=== PATIENT | female | born 1990 | race Caucasian/White ===

== ENCOUNTER 2017-03-12 13:22 | Emergency (ER) | payer SELFPAY ==
[2017-03-12] MEDS ORDERED: LORazepam 1 MG TAB ONE (13:58)
[2017-03-12] MEDS ORDERED: LORazepam 1 MG TAB PO ONE (14:00)
[2017-03-12] MEDS ORDERED: CEPHALEXIN 500 MG CAP PO ONE (14:01)
--- NOTE | 2017-03-12 14:03 | EDPHY ---
H & P Time Seen by Provider: 03/12/17 13:49 HPI/ROS: CHIEF COMPLAINT: Left 2nd digit laceration HISTORY OF PRESENT ILLNESS: 27-year-old female history of hepatitis-C, up-to- date tetanus, right-hand dominant was using a knife when it slipped and she sustained laceration to her left 2nd digit proximal phalanx radial aspect. She is complaining of paresthesia distally. She is complaining of decreased range of motion. PHYSICAL EXAM (Prior to examination, patient consented to physical exam, hands were washed and my usual and customary physical exam procedures followed) 1) GENERAL: Well-developed, well-nourished, alert and oriented. Appears anxious . 2) HEAD: Normocephalic 3) HEENT: sclera anicteric 4) LUNGS: Breathing comfortably. 5) SKIN: on the patient's left 2nd digit proximal phalanx radial aspect she has a 3 cm laceration 6) MUSCULOSKELETAL: she is unable or unwilling to extend at the MCP of the 2nd digit. 7) NEUROLOGIC: Decreased sensation distally on the affected side Smoking Status: Current every day smoker Constitutional: Initial Vital Signs Temperature (C) 36.4 C 03/12/17 13:27 Heart Rate 114 H 03/12/17 13:27 Respiratory Rate 20 03/12/17 13:27 Blood Pressure 111/74 03/12/17 13:27 O2 Sat (%) 95 03/12/17 13:27 O2 Delivery Mode Room Air Allergies/Adverse Reactions: acetaminophen [From Tylenol-Codeine #3] Allergy (Verified 09/12/16 13:30) codeine phosphate [From Tylenol-Codeine #3] Allergy (Verified 09/12/16 13:30) hydromorphone HCl [From Dilaudid] Allergy (Verified 09/12/16 13:30) metoclopramide HCl [From Reglan] Allergy (Verified 09/12/16 13:30) trazodone Allergy (Verified 09/12/16 13:30) tuberculin,PPD,multi-puncture Allergy (Verified 09/12/16 13:30) Home Medications: Medication Instructions Recorded Amoxicillin Trihydrate 500 mg PO Q8 7 Days 09/12/16 [Amoxicillin 500mg cap] Levothyroxine 09/12/16 oxyCODONE/APAP 5/325 [Percocet 1 tab PO Q6 #10 tab 09/12/16 5/325] Cephalexin [Keflex] 500 mg PO TID 5 Days 03/12/17 MDM/Departure - [facility] Imaging Results: Imaging Impressions Hand X-Ray 03/12/17 14:01 Impression: Negative for acute osseous abnormality. Images reviewed by myself Procedures: Procedure: Laceration repair. I explained the indications, risks and benefits for both laceration repair and anesthetic administration. Verbal consent was obtained from the patient . The laceration on the left index finger was anesthetized using 0.5% bupivicaine without epinephrine . After anesthetic administered the patient was observed for a period of time and had no apparent adverse effects. The wound was cleaned , prepped, draped in normal sterile fashion and explored to its base. No foreign body seen, no foreign bodies palpated. There is a partial extensor tendon laceration The wound was closed with 7 simple interrupted 5 O Prolene suture. The wound repair was complex. The procedure was performed by myself. Patient has been informed that scarring will occur, although efforts have been made to minimize this. Procedure: Splint Analuminum finger splint was applied by ER holter scanning technician. After application of the splint I returned and re-examined the patient. The splint was adequately immobilizing the joint and distal to the splint the patient's circulation and sensation were intact. Patient shows no signs of compartment syndrome. Was given orthopedic precautions. Medications Given: Discontinued Medications Cephalexin HCl (Keflex) 500 mg PO EDNOW ONE PRN Reason: Protocol Stop: 03/12/17 14:02 Last Admin: 03/12/17 14:23 Dose: 500 mg Ibuprofen (Motrin) 600 mg PO ONCE ONE Stop: 03/12/17 16:06 Last Admin: 03/12/17 16:06 Dose: 600 mg Lorazepam (Ativan) 1 mg PO EDNOW ONE Stop: 03/12/17 14:01 Last Admin: 03/12/17 14:00 Dose: 1 mg ED Course/Re-evaluation: The patient was re-evaluated with serial examinations. The wound was copiously irrigated examined by myself a gloved finger. Doubt traumatic arthrotomy of the left 2nd MCP. We discussed the possibility of extensor tendon and nerve laceration. At this time Ihave recommended skin reapproximation, splinting, follow up with hand surgeon. I have stressed the importance of hand surgery follow-up on numerous instances. She verbalized understanding of this will do so. - Depart Disposition: Home, Routine, Self-Care Clinical Impression: Laceration of left index finger Condition: Good Instructions: Laceration (ED) Additional Instructions: Return to the ER if you develop redness, swelling, discharge, warmth to the wound, red streaks going up your arm , or any other symptoms that concern you. Prescriptions: Cephalexin [Keflex] 500 mg PO TID 5 Days Referrals: Leonard Fisher MD [Medical Doctor] - 1-2 days without fail (Dr. Leonard Fisher is a hand surgeon. It is very important to follow up with hand surgeon.)
[2017-03-12] MEDS ORDERED: IBUPROFEN 600 MG TAB PO ONE (16:05)
[2017-03-12 16:20] VITALS: BP 111/68; PULSE 109; RESP 16; TEMP 98.1; O2SAT 96
== END 2017-03-12 16:24 | disposition home or self-care (01) ==
PROC: 0HQGXZZ Repair Left Hand Skin, External Approach (ICD-10-PCS; principal; 2017-03-12)
DX: S61.211A Laceration without foreign body of left index finger without damage to nail, initial encounter (principal); F17.200 Nicotine dependence, unspecified, uncomplicated; W26.0XXA Contact with knife, initial encounter
CPT/HCPCS: L3925

== ENCOUNTER 2017-04-10 14:28 | Emergency (ER) | payer SELFPAY ==
[2017-04-10] MEDS ORDERED: NS 1,000 ML IV ONE (14:59)
--- NOTE | 2017-04-10 15:19 | CPEKG ---
Heart Rate: 94 RR Interval: 638 P-R Interval: 148 QRSD Interval: 78 QT Interval: 328 QTC Interval: 411 P [place]: 67 QRS [place]: 54 T Wave [place]: 57 EKG Severity - NORMAL ECG - EKG Impression: SINUS RHYTHM Electronically Signed By: Maury Cui 10-Apr-2017 21:53:49
[2017-04-10 16:02] LABS: % IMMATURE GRANULYOCYTES 0.4 % (0.0-1.1); ABSOLUTE IMMATURE GRANULOCYTES 0.05 10^3/uL (0.00-0.10); ADD DIFF? NO; ADD MORPH? NO; ADD SCAN? YES; ATYPICAL LYMPHOCYTE FLAG 20 (0-99); FRAGMENT RBC FLAG 0 (0-99); HEMATOCRIT 43.4 % (38.0-47.0); HEMOGLOBIN 15.1 g/dL (12.6-16.3); LEFT SHIFT FLG 0 (0-99); LIPEMIA HEMOLYSIS FLAG 90 (0-99); MEAN CELL HEMOGLOBIN 30.6 pg (27.9-34.1); MEAN CELL HEMOGLOBIN CONCENTR. 34.8 g/dL (32.4-36.7); MEAN CELL VOLUME 87.9 fL (81.5-99.8); MEAN PLATELET VOLUME 9.2 fL (8.7-11.7); PLATELET COUNT 246 10^3/uL (150-400); RED BLOOD CELL COUNT 4.94 10^6/uL (4.18-5.33); RED CELL DISTRIBUTION WIDTH 12.4 % (11.5-15.2)
[2017-04-10 16:03] LABS: PLATELET CLUMPS FLAG 300 (0-99)
[2017-04-10] MEDS ORDERED: LORazepam 2 MG/ML INJ IVP ONE (16:09)
[2017-04-10] MEDS ORDERED: KETOROLAC 30 MG/1 ML SDV IVP ONE (16:09)
[2017-04-10 16:11] LABS: ANION GAP 16 mEq/L (8-16); CALCIUM 10.2 mg/dL (8.5-10.4); CARBON DIOXIDE 19 mEq/l (22-31); CHLORIDE 109 mEq/L (97-110); CREATININE 0.9 mg/dL (0.6-1.0); GLOMERULAR FILTRATION RATE > 60; GLUCOSE 96 mg/dL (70-100); POTASSIUM 4.5 mEq/L (3.5-5.2); SODIUM 144 mEq/L (134-144)
[2017-04-10 16:37] LABS: SCAN NEGATIVE
--- NOTE | 2017-04-10 17:09 | EDPHY ---
H & P Time Seen by Provider: 04/10/17 14:54 HPI/ROS: CHIEF COMPLAINT: Dizzy, nauseous, syncopal episode HISTORY OF PRESENT ILLNESS: 27-year-old female presents to the emergency department feeling dizzy and nauseous over last 2 days. She apparently had a syncopal episode earlier today. She has been complaining of feeling feverish and had a temperature of 102degrees. No diarrhea. No known ill contacts. The patient has left-sided dental pain as well. No recent dental fractures or acute dental trauma. She does not have a dentist. She denies dysphagia. Denies headache. Denies fevers or chills. She was having chest pain and difficulty breathing earlier today. She admitted to using methamphetamines 2 days ago, prior to that she had been sober for the last month and a half from drugs. REVIEW OF SYSTEMS: Constitutional: Fever as above Eyes: No double or blurry vision. ENT: No sore throat. Respiratory: Shortness of breath, no cough Cardiac: Chest pain Gastrointestinal: Nausea, vomiting. No abdominal pain or diarrhea Genitourinary: No dysuria. Musculoskeletal: No neck or back pain. Skin: No rashes. Neurological: headache. Past Medical/Surgical History: Substance abuse, cholecystectomy, kidney stones Social History: Homeless Smoking Status: Current every day smoker Physical Exam: General Appearance: Alert, no distress. Anxious. Eyes: Pupils equal and round. Extraocular motions are all intact. The patient has purple conjunctiva. ENT: Mouth: Mucous membranes moist. Poor dentition noted. There is no buccal or gingival mucosal swelling. No evidence of abscess. She has fractured teeth noted to the right upper 2nd and 3rd molars. She also has fractured tooth to the left lower 3rd molar and left upper 3rd molar. Respiratory: No wheezing, rhonchi, or rales, lungs are clear to auscultation. Cardiovascular: Regular rate and rhythm. Gastrointestinal: Abdomen is soft and nontender, no masses, no rebound or guarding, bowel sounds normal. Neurological: Alert and oriented x 3, cranial nerves II through XII grossly intact Skin: Warm and dry, no rashes. Musculoskeletal: Nontender to palpate along the cervical, thoracic or lumbar spine. Neck is supple. Extremities: Full range of motion and no peripheral edema. Psychiatric: Patient is oriented X 3, there is no agitation. Constitutional: Initial Vital Signs Temperature (C) 36.5 C 04/10/17 14:29 Heart Rate 117 H 04/10/17 14:29 Respiratory Rate 22 H 04/10/17 14:29 Blood Pressure 132/101 H 04/10/17 14:29 O2 Sat (%) 99 04/10/17 14:29 O2 Delivery Mode Room Air Allergies/Adverse Reactions: acetaminophen [From Tylenol-Codeine #3] Allergy (Verified 09/12/16 13:30) codeine phosphate [From Tylenol-Codeine #3] Allergy (Verified 09/12/16 13:30) hydromorphone HCl [From Dilaudid] Allergy (Verified 09/12/16 13:30) metoclopramide HCl [From Reglan] Allergy (Verified 09/12/16 13:30) trazodone Allergy (Verified 09/12/16 13:30) tuberculin,PPD,multi-puncture Allergy (Verified 09/12/16 13:30) Home Medications: Medication Instructions Recorded Levothyroxine 09/12/16 Penicillin V Potassium 500 mg PO TID #30 tablet 04/10/17 Medical Decision Making ED Course/Re-evaluation: 27-year-old female presents to the emergency department feeling nauseous, dizzy and having a syncopal episode today. Her EKG was within normal limits. Laboratory studies [place] [id number]. Chemistries are unremarkable. HCG is negative. Patient will be started on penicillin for her dental pain. She was given dental referral. The patient was also given IV normal saline and IV Toradol. She was feeling much better. Patient was encouraged to return to the emergency department if she developed facial swelling, fever, dysphagia, or if she felt worse in any way. - Data Points Laboratory Results: Laboratory Results 04/10/17 15:45 04/10/17 15:45 Medications Given: Discontinued Medications Acetaminophen (Tylenol) 1,000 mg PO EDNOW ONE Stop: 04/10/17 21:44 Last Admin: 04/10/17 21:43 Dose: 1,000 mg Sodium Chloride (Ns) 1,000 mls @ 0 mls/hr IV ONCE ONE PRN Reason: Wide Open Stop: 04/10/17 15:00 Last Admin: 04/10/17 16:05 Dose: 1,000 mls Ketorolac Tromethamine (Toradol) 30 mg IVP EDNOW ONE Stop: 04/10/17 16:10 Last Admin: 04/10/17 16:25 Dose: 30 mg Lorazepam (Ativan Injection) 0.5 mg IVP EDNOW ONE Stop: 04/10/17 16:10 Last Admin: 04/10/17 16:39 Dose: 0.5 mg Penicillin V Potassium (Pen Vk) 500 mg PO EDNOW ONE PRN Reason: Protocol Stop: 04/10/17 21:27 Last Admin: 04/10/17 21:30 Dose: 500 mg Penicillin V Potassium (Pen Vk 250 Mg Prepack#6) 1 btl TAKEHOME EDNOW ONE PRN Reason: Protocol Stop: 04/10/17 21:31 Last Admin: 04/10/17 21:41 Dose: 1 btl Departure - Departure Disposition: Home, Routine, Self-Care Clinical Impression: Pain due to dental caries, Substance abuse Fractured tooth Qualifiers: Encounter type: initial encounter Fracture type: closed Qualified Code(s): S02.5XXA - Fracture of tooth (traumatic), initial encounter for closed fracture Syncope Qualifiers: Syncope type: unspecified Qualified Code(s): R55 - Syncope and collapse Vomiting Qualifiers: Vomiting type: unspecified Vomiting Intractability: non-intractable Nausea presence: with nausea Qualified Code(s): R11.2 - Nausea with vomiting, unspecified Condition: Good Instructions: Penicillin V (By mouth), Dental Caries (ED), Syncope (ED), Acute Nausea and Vomiting (ED), Toothache (ED) Additional Instructions: Avoid using any recreational drugs. Return to the emergency department if he developed recurring chest pain, difficulty breathing, recurring vomiting, fever , or if you feel worse in any way. Penicillin 3 times daily for 10 days. Referrals: [facility] [Outside] - As per Instructions [facility] [Outside] - As per Instructions [facility] [Outside] - As per Instructions [facility] [Outside] - As per Instructions [facility] [Outside] - As per Instructions Prescriptions: Penicillin V Potassium 500 mg PO TID #30 tablet
[2017-04-10 17:29] VITALS: RESP 16
[2017-04-10] MEDS ORDERED: PENICILLIN VK 250 MG TAB ONE (21:10)
[2017-04-10] MEDS ORDERED: PENICILLIN VK 500 MG TAB PO ONE (21:26)
[2017-04-10] MEDS ORDERED: PENICILLIN VK 250MG PREPACK#6 BTL TAKEHOME ONE (21:30)
[2017-04-10] MEDS ORDERED: ACETAMINOPHEN 500 MG TAB ONE (21:35)
[2017-04-10 21:43] VITALS: BP 128/70; PULSE 87; TEMP 98.1; O2SAT 96
[2017-04-10] MEDS ORDERED: ACETAMINOPHEN 500 MG TAB PO ONE (21:43)
== END 2017-04-10 21:42 | disposition home or self-care (01) ==
DX: R55 Syncope and collapse (principal); R11.2 Nausea with vomiting, unspecified; K03.81 Cracked tooth; F19.10 Other psychoactive substance abuse, uncomplicated; F17.200 Nicotine dependence, unspecified, uncomplicated
CPT/HCPCS: 96374; J1885; J2060

== ENCOUNTER 2017-10-21 09:11 | Emergency (ER) | payer MEDICAID ==
--- NOTE | 2017-10-21 09:18 | EDPHY ---
H & P Time Seen by Provider: 10/21/17 09:11 HPI/ROS: CHIEF COMPLAINT: Medical screening for incarceration, head injury HISTORY OF PRESENT ILLNESS: 27-year-old female states that yesterday evening, approximately 9:00 p.m. she was walking her dog when her dog pulled her and she fell forward impacting her left frontal region. No loss of consciousness. She is complaining of midline C-spine pain, headache. No nausea or vomiting. She was placed under arrest this morning was brought to the emergency department for medical screening prior to incarceration. PRIMARY CARE PROVIDER: REVIEW OF SYSTEMS: A ten point review of systems was performed and is negative with the exception of the items mentioned in the HPI PAST MEDICAL/SURGICAL HISTORY: no anticoagulant use, no relevant medical/ surgical history SOCIAL HISTORY: denies alcohol use at time of incident PHYSICAL EXAM 1) GENERAL: Well-developed, well-nourished, alert and oriented. Appears to be in no acute distress. Answering questions appropriately. 2) HEAD: Normocephalic, left frontal abrasion without signs of infection 3) HEENT: Pupils equal, round, reactive to light bilaterally. Negative Horners. Nasopharynx, oropharynx, clear. No deformity or angulation of nose. No septal hematoma. No rhinorrhea. No oral trauma. Ears bilaterally with normal tympanic membranes. No hemotympanum. No fluid or blood in the external auditory canal. No raccoon eyes. No Muniz sign. Teeth are normally aligned with no gross malocclusion, TMJ bilaterally nontender, facial bones nontender including the zygomatic arch, maxilla mandible. 4) NECK: No cervical collar is on. Patient is unable to completely differentiate between true midline pain versus just lateral of midline pain.Cervical collar is placed at that point. 5) LUNGS: Clear to auscultation bilaterally, no wheezes, no rhonchi, no retractions. No obvious signs of trauma. No chest wall pain. No flaring, no grunting. Moving symmetrically. No crepitus. 6) HEART: [Regular rate and rhythm, 7) ABDOMEN: No guarding, no rebound, no focal tenderness, no peritoneal signs, no signs of trauma, no ecchymosis 8) MUSCULOSKELETAL: Moving all extremities, no focal areas of tenderness, no obvious trauma. 9) BACK: Patient logrolled while holding inline traction.No midline vertebral tenderness, no fluctuance, no step-off, no obvious trauma, no visual or palpable abnormality. 10) SKIN: Non infected abrasion left frontal region DIFFERENTIAL DIAGNOSIS: Not necessarily in any particular order, my differential diagnosis includes, but is not limited to, concussion, skull fracture, intraparenchymal contusion, subarachnoid, subdural and epidural hematoma, cervical fracture, cervical sprain. The patient understands that this diagnosis is provisional and can never be 100% accurate. - Personal History Tetanus Vaccine Date: < 10 YEARS - Medical/Surgical History Hx Asthma: Yes Hx Chronic Respiratory Disease: No Hx Diabetes: No Hx Cardiac Disease: No Hx Renal Disease: No Hx Cirrhosis: No Hx Alcoholism: No Hx HIV/AIDS: No Hx Splenectomy or Spleen Trauma: No Other PMH: cholecystectomy/KIDNEY STONES, back pain, ear infxn - Social History Smoking Status: Current every day smoker Constitutional: Initial Vital Signs Temperature (C) 36.9 C 10/21/17 09:23 Heart Rate 102 H 10/21/17 09:23 Respiratory Rate 18 10/21/17 09:23 Blood Pressure 149/115 H 10/21/17 09:23 O2 Sat (%) 99 10/21/17 09:23 O2 Delivery Mode Room Air Allergies/Adverse Reactions: acetaminophen [From Tylenol-Codeine #3] Allergy (Verified 10/21/17 09:22) codeine phosphate [From Tylenol-Codeine #3] Allergy (Verified 10/21/17 09:22) hydromorphone HCl [From Dilaudid] Allergy (Verified 10/21/17 09:22) metoclopramide HCl [From Reglan] Allergy (Verified 10/21/17 09:22) trazodone Allergy (Verified 10/21/17 09:22) tuberculin,PPD,multi-puncture Allergy (Verified 10/21/17 09:22) Home Medications: Medication Instructions Recorded Levothyroxine 09/12/16 Medical Decision Making ED Course/Re-evaluation: 9:20 a.m.:Head and cervical spine CT ordered in this patient for trauma for the following indication: severe headache, unable to fully differentiate true midline versus just lateral midline C-spine pain 9:52 a.m.: CT imaging of the head and cervical spine are negative per Radiology interpretation. Patient was re-evaluated at this time. Cervical collar is removed. She remains with a nonfocal neurologic examination. Plan will be discharge, she is cleared for incarceration. Usual and customary discharge precautions and instructions provided. Care of patient under supervision of secondary supervising physician Dr Javed Khan. Departure - Departure Disposition: Law Enforcement/Court/[facility] Clinical Impression: Head injury due to trauma Qualifiers: Encounter type: initial encounter Qualified Code(s): S09.90XA - Unspecified injury of head, initial encounter Cervical muscle strain Qualifiers: Encounter type: initial encounter Qualified Code(s): S16.1XXA - Strain of muscle, fascia and tendon at neck level, initial encounter Condition: Good Instructions: Head Injury (ED), Cervical Strain (DC), Cervical Strain (ED) Additional Instructions: PLEASE RETURN TO THE EMERGENCY DEPARTMENT (ED) IMMEDIATELY IF YOU HAVE INCREASED HEADACHE, PERSISTENT HEADACHE, VOMITING, WEAKNESS, CONFUSION OR VISUAL PROBLEMS. WE RECOMMEND THAT YOU DO NOT RESUME CONTACT SPORTS OR ACTIVITIES THAT TAKE COORDINATION OR BALANCE SUCH SKIING OR RIDING A BICYCLE UNTIL CLEARED TO DO SO BY YOUR DOCTOR OR BY A NEUROLOGIST. Referrals: [facility],. [Clinic] - 2-3 days, call for appt.
[2017-10-21 09:27] VITALS: RESP 18; TEMP 98.4
[2017-10-21] MEDS ORDERED: IBUPROFEN 600 MG TAB PO ONE ×2 (10:09→10:10)
[2017-10-21 10:14] VITALS: BP 157/102; PULSE 106; O2SAT 98
== END 2017-10-21 10:12 ==
LOC: EDUNIT#
DX: S09.90XA Unspecified injury of head, initial encounter (principal); S16.1XXA Strain of muscle, fascia and tendon at neck level, initial encounter; F17.200 Nicotine dependence, unspecified, uncomplicated; J45.909 Unspecified asthma, uncomplicated; W01.198A Fall on same level from slipping, tripping and stumbling with subsequent striking against other object, initial encounter; Y99.8 Other external cause status; Y93.01 Activity, walking, marching and hiking
CPT/HCPCS: L0120